=== PATIENT | female | born 1995 | race Caucasian/White ===

== ENCOUNTER 2020-05-14 11:46 | Outpatient (REF) | payer OTHER, SELFPAY | END 2020-05-14 11:47 | disposition home or self-care (01) | LOC: HO.LAB 11:46 | PROVIDERS: Visit Provider Internal Medicine | DX: Z13.89 Encounter for screening for other disorder (principal) ==

== ENCOUNTER 2022-05-01 21:00 | Emergency (ER) | payer OTHER, SELFPAY ==
[2022-05-01 21:46] VITALS: BP 138/81; PULSE 96; RESP 16; TEMP 36.6; O2SAT 98; BMI 25.6
[2022-05-02 01:35] LABS: COVID-19 Test Negative (Negative)
[2022-05-02 02:06] LABS: IDNOW Serial# 08D9AD1C; Influenza A Negative (Negative); Influenza B2 Negative (Negative)
[2022-05-02 02:56] VITALS: BP 122/73; PULSE 91; RESP 18; TEMP 37; O2SAT 100
[2022-05-02 03:17] LABS: Strep A Nucleic Acid Negative (Negative)
--- NOTE | 2022-05-02 03:37 | ED.EAR ---
HPI - Ear Problem General Chief complaint: Ear Problems Stated complaint: Earache Time Seen by Provider: 05/02/22 03:30 Source: patient Mode of arrival: ambulatory Limitations: no limitations History of Present Illness HPI Narrative: Patient comes to the emergency room complaining of left-sided ear pain and sore throat. Patient denies fever or chills, no URI or UTI symptoms. No nausea vomiting or diarrhea. Related Data Previous Rx's Medication Instructions Recorded cefuroxime axetil 500 mg tablet 500 mg PO BID 10 days #20 tabs 05/02/22 Allergies Allergy/AdvReac Type Severity Reaction Status Date / Time Penicillins [PENICILLINS] Allergy Unknown RASH Unverified 04/09/20 16:49 Review of Systems Review of Systems: Constitutional : No Weight loss, No Fever, No Chills, No Night Sweats, No Fatigue, No Malaise ENT/Mouth : No Hearing loss, playing of left-sided Ear Pain, No Nasal Congestion, No Sinus Pain, No Hoarseness, complaining of sore throat, No Rhinorrhea, No Swallowing Difficulty Eyes: No Eye Pain, No Swelling, No Redness, No Foreign Body, No Discharge, No Vision Changes Cardiovascular : No Chest Pain, No SOB, No Dyspnea on Exertion, No Orthopnea, No Edema, No Palpitations Respiratory : No Cough, No Sputum, No Wheezing, No Smoke Exposure, No Dyspnea Gastrointestinal : No Nausea, No Vomiting, No Diarrhea, No Constipation, No abdominal Pain, No Hematochezia, No Melena Genitourinary : no irregular bleeding, No Dysuria, No Urinary Frequency, No Hematuria, No Urinary Incontinence, No Urgency, No Flank Pain, No Urinary Flow Changes, No Hesitancy Musculoskeletal : No joint pain, No Myalgias, No Joint Swelling Skin : No Skin Lesions, No rash Neuro : No Weakness, No Numbness, No Paresthesias, No Loss of Consciousness, No Dizziness, No Headache Psych : No Anxiety/Panic, No Depression, No SI/HI/AH/VH, No Social Issues, Heme/Lymph: No Bruising, No Bleeding,No Lymphadenopathy Endocrine : No Polyuria, No Polydipsia, No Temperature Intolerance PMFSH Social History Social History Alcohol intake: never Patient Tobacco Use Status: Never used Tobacco Use of substances other than those prescribed or required for medical reasons: No Advance Directives: No Advance Directives Information Provided: No Physical Exam Vital Signs: Vital Signs: Last Vital Signs Temp 98.6 F 05/02/22 02:56 Pulse 91 05/02/22 02:56 Resp 18 05/02/22 02:56 BP 122/73 05/02/22 02:56 Pulse Ox 100 05/02/22 02:56 O2 Del Method 05/02/22 02:56 BMI result Body Mass Index 25.6 Const: Other: Appearance: Alert. Oriented X3. No acute distress. Eyes: Pupils equal, round and reactive to light. ENT: Pharynx normal. No exudates, no abscesses. Patient has otitis media on the left side. Neck: Normal inspection. Neck supple. No lymph nodes noted. No crepitus CVS: Normal heart rate and rhythm. Pulses normal. Normal S1 and S2 Respiratory: No respiratory distress. Breath sounds normal. No Wheezing. No rales Abdomen: Soft and nontender. No rigidity. No distention. Skin: Skin warm and dry. Normal skin color. Normal skin turgor. Extremities: No lower extremity edema. No Lacerations. No Rash Neuro: Oriented X 3. No motor deficit. No sensory deficit. Moving all extremities. No slurred speech. CN 2 through 12 grossly intact Psych: calm, cooperative, normal affect Course Course Course Narrative: Patient tested negative for strep, COVID/influenza/RSV. Patient does have otitis media. Patient given the 1st dose of cefuroxime in the emergency room. Patient is allergic to penicillins. MDM - Ear Lab Data Labs: Lab Results 05/02/22 05/02/22 05/02/22 Range/Units 00:47 00:47 01:38 COVID-19 (DEMETRI) Negative (Negative) COVID-19 Clin Com See Note Influenza Type A ([facility]) Cancelled Negative Influenza Type B (ESTUARDO) Cancelled Negative Influenza A & B Note Cancelled See Note S. pyogenes GrpA ESTUARDO (Negative) 05/02/22 Range/Units 03:01 COVID-19 ([facility]) (Negative) COVID-19 Clin Com Influenza Type A (ESTUARDO) Influenza Type B (ESTUARDO) Influenza A & B Note S. pyogenes GrpA ESTUARDO Negative (Negative) Discharge Plan Discharge Clinical Impression: Otitis media Patient Disposition: Home, Self-Care Instructions: Serous Otitis Media (ED) Additional Instructions: Please follow-up with your primary care physician tomorrow. If you have any worsening or new symptoms, please return to the emergency room or call 911 Prescriptions: New cefuroxime axetil 500 mg tablet 500 mg PO BID 10 Days Qty: 20 0RF
== END 2022-05-02 03:49 | disposition home or self-care (01) ==
PROVIDERS: Emergency Provider Emergency Medicine
DX: H66.92 Otitis media, unspecified, left ear (principal); Z20.822 Contact with and (suspected) exposure to COVID-19; J02.9 Acute pharyngitis, unspecified
CPT/HCPCS: 87502; 87635; 87651; 99283; 99284

== ENCOUNTER 2024-08-08 18:05 | Emergency (ER) | payer OTHER, SELFPAY ==
--- NOTE | ~2024-08-08 | XR_ITS ---
CLINICAL HISTORY: middle finger nail avulsion 3 view right 3rd digit Comparison: None Findings: No fractures or dislocations. No significant loss of joint space or osteophytes. No erosions. No radiopaque foreign body. IMPRESSION: 1. No acute findings This document has been electronically signed by: Leilani Weber MD on 08/08/2024 21:37:43
[2024-08-08 18:45] VITALS: BP 141/78; PULSE 75; RESP 16; TEMP 36.8; O2SAT 100; BMI 25.2
--- NOTE | 2024-08-08 20:27 | ED.EXTPRO ---
HPI - Extremity Problem General Chief complaint: Extremity Injury, Upper Stated complaint: rt hand middle finger tip broken? Time Seen by Provider: 08/08/24 23:30 Source: patient Mode of arrival: ambulatory Limitations: no limitations History of Present Illness ED Provider: Dr. Remy Warner HPI Narrative: 29-year-old female with no significant past medical history who presents emergency department for evaluation of injury to her right middle finger nail bed. Patient states that she just got false nails placed on her fingernails approximately 1 week prior. She states that she was pulling on her Crocks when her false an elevated at caught on a strap causing the nail to left. She then developed pain in her finger nail with bleeding from under the nail. Patient wrapped her finger and bandages and came to emergency department for evaluation. Related Data Previous Rx's ?Medication ?Instructions ?Recorded cefuroxime axetil 500 mg tablet 500 mg PO BID 10 days #20 tabs 05/02/22 Allergies Allergy/AdvReac Type Severity Reaction Status Date / Time Penicillins [PENICILLINS] Allergy Unknown RASH Verified 08/08/24 18:47 Review of Systems Review of Systems: Yes all other systems are reviewed and are negative [facility] Social History Social History Alcohol intake: never Patient Tobacco Use Status: Never used Tobacco Advance Directives: No Advance Directives Information Provided: Yes Do you have a plan to hurt others: No Plan Physical Exam Vital Signs: Vital Signs: Last Vital Signs Temp 98.2 F 08/09/24 00:46 Pulse 75 08/09/24 00:46 Resp 16 08/09/24 00:46 BP 122/69 08/09/24 00:46 Pulse Ox 97 08/09/24 00:46 O2 Del Method Room Air 08/09/24 00:46 BMI result Body Mass Index 25.2 Vital signs were normal Exam: right hand: The false nail of the right middle finger has a lateral crack in it, there is dried blood under the normal nail. After the false nail was removed, the true nail appears to be adherent to the nail bed and did not need to be removed Course Course Course Narrative: This is an RME: Additional HPI, ROS, PE not included below will be deferred to primary provider. RME assessment and note performed by: Tejal Ren PA-C This is a 29-year-old female who presents emergency department with complaints of right fingertip nail avulsion which started this morning. Acryltic nail got caught on something and her nail fell off. Does not want to take off bandaid and need as this will cause increased bleeding in triage Plan: X-ray, wound repair Medications Administered Discontinued Medications Generic Name Dose Route Start Last Admin Trade Name Tam PRN Reason Stop Dose Admin Bacitracin 1 appl 08/09/24 00:32 08/09/24 00:39 Bacitracin Oint 0.9 Gm Packet TOPICAL 08/09/24 00:33 1 appl ONCE ONE Administration Protocol Lidocaine HCl 5 ml 08/08/24 23:39 08/09/24 00:00 Lidocaine Hcl 1 % Mpf 5 Ml Vial INFILTRATI 08/08/24 23:40 5 ml ONCE STA Administration Lidocaine HCl 5 ml 08/08/24 23:39 08/09/24 00:00 Lidocaine Hcl 1 % Mpf 5 Ml Vial INFILTRATI 08/08/24 23:40 5 ml ONCE ONE Administration Medical Decision Making Medical Decision Making MDM Narrative: 29-year-old female who presents emergency department for evaluation of injury to the right middle finger nail bed. Exam Revealed the break in the falls nail with bleeding from the nailbed but no disruption of the fingernail. Differential diagnosis: Includes but is not limited to Nail avulsion, nail bed laceration, tuft fracture Course: The patient's exam is consistent with a minor avulsion of the fingernail of the right middle finger with no significant injury to the nailbed. X-rays revealed no acute fracture to the finger. I did discuss this finding with the patient. Bacitracin was applied to the fingernail and a sterile gauze dressing was applied over the nail to keep pressure on the nail and nailbed. patient was given printed and verbal instructions discharged home. Admission/Observation Consideration of admission/observation: Escalation of care including admission/observation considered ( no) Independent Interpretation I performed an independent interpretation of an: Plain X-Ray Interpretation: my interpretation of the patient's right hand x-rays as follows: No acute fracture seen Radiology Impression Discussion of test interpretation with radiology: I have reviewed the radiologist's reading. Radiologist Impression: 3 view right 3rd digit Comparison: None Findings: No fractures or dislocations. No significant loss of joint space or osteophytes. No erosions. No radiopaque foreign body. IMPRESSION: 1. No acute findings This document has been electronically signed by: Leilani Weber MD on 08/08/2024 21:37:43 Procedures Procedure Narrative Procedure Narrative: Removal of false finger nail and evaluation of finger nail and nailbed of the right middle finger procedure: The patient was having significant pain and the finger secondary to her nail injury and I was unable to examine her until a digital block was performed. 10 cc of 1% lidocaine was used to achieve sufficient analgesia to remove the anterior portion of the false nail. Using hemostat I was able to test the integrity of the nail and the nail is still attached the nailbed therefore the nail was not removed. Bacitracin was applied to the tip of the nail and a gauze pressure dressing was applied by the nurse. Discharge Plan Discharge Clinical Impression: Nail avulsion, finger Patient Disposition: Home, Self-Care Additional Instructions: Based on your exam, I believe that the false nail lifted up your nail tearing at away from the nailbed. The nailbed is very vascular and this cause the nailbed to bleed. When I removed part of the false nail, it looks like your natural nail is intact, stable and does not need to be removed at this time. Apply bacitracin to the nail twice a day for 2 days Watch for signs of infection which would include increased swelling or pain of the tip of your finger, redness of the finger, red streaks or drainage of pus. If you think the fingers infected you can follow up with her doctor, urgent care or return to the emergency department for re-evaluation. I advised you to wait for at least 1 week to let the nailbed heal before you get your false nail replaced. Please return to the emergency department if your symptoms get worse or if you develop any symptoms that are concerning to you. Prescriptions: No Action cefuroxime axetil 500 mg tablet 500 mg PO BID 10 Days Qty: 20 0RF Interventions: ED Discharge Assessment Last Done: 08/09/24 00:46 Discharge Date/Time: 08/09/24 00:46 Print Language: Yakut
[2024-08-09] MEDS: Lidocaine HCl 1 % MPF 5 ML VIAL INFILTRATI ×2
[2024-08-09 00:26] VITALS: BP 122/69; PULSE 75; RESP 16; TEMP 36.8; O2SAT 97
[2024-08-09] MEDS: Bacitracin Oint 0.9 GM PACKET 1 APPL TOPICAL (00:39)
[2024-08-09 00:46] VITALS: BP 122/69; PULSE 75; RESP 16; TEMP 36.8; O2SAT 97
== END 2024-08-09 00:46 | disposition home or self-care (01) ==
PROVIDERS: Emergency Provider Emergency Medicine Emergency Medical Services
DX: S61.302A Unspecified open wound of right middle finger with damage to nail, initial encounter (principal); M79.644 Pain in right finger(s); X58.XXXA Exposure to other specified factors, initial encounter; Y93.9 Activity, unspecified; Y92.9 Unspecified place or not applicable; Y99.8 Other external cause status
CPT/HCPCS: 11730; 73140; 99283; 99284; J2003

== ENCOUNTER → 2024-08-08 20:27 | Outpatient (BNV) | payer OTHER, SELFPAY | PROVIDERS: Visit Provider Radiology Diagnostic Radiology | DX: S61.302A Unspecified open wound of right middle finger with damage to nail, initial encounter (principal) | CPT/HCPCS: 73140 ==